=== PATIENT | male | born 1940 | race Caucasian/White ===

== ENCOUNTER 2020-01-25 18:44 | Emergency (ER) | payer MEDICARE, OTHER ==
[~2020-01-25] VITALS: Ht 177.8 cm; Wt 85.7 kg
[~2020-01-25 18:44] MED LIST: EZET10 PO; MECL25 PO; PROM25 PO
[2020-01-25] MEDS ORDERED: LEVSOD75 PO (20:53)
== END 2020-01-25 21:37 | disposition home or self-care (01) ==
LOC: ER 18:44
DX: R33.9 Retention of urine, unspecified (principal); E03.9 Hypothyroidism, unspecified; N40.0 Benign prostatic hyperplasia without lower urinary tract symptoms; Z79.899 Other long term (current) drug therapy; Z98.890 Other specified postprocedural states
CPT/HCPCS: 51702; 51798; 99283-25